=== PATIENT | female | born 1975 | race Caucasian/White ===

== ENCOUNTER 2022-11-11 06:37 | Inpatient (IN) | payer MEDICAID ==
[2022-11-11] MEDS ORDERED: Naloxone 0.4 MG/ML SDV IVPUSH PRN (06:48)
[2022-11-11] MEDS ORDERED: Lactated Ringers 1,000 ML IV SCH ×2 (07:00→15:30)
[2022-11-11 07:16] LABS: ESTIMATED GFR 50 mL/min (>60)
[2022-11-11] MEDS: HYDROmorphone/Normal Saline 6 MG/30 ML PCA Vial IV PRN ×2 (07:52→23:21)
[2022-11-11] MEDS: Ondansetron 4 MG/2 ML SDV IVPUSH PRN (08:14)
[2022-11-11] MEDS ORDERED: Acetaminophen 325 MG Tab PO SCH (09:15)
[2022-11-11] MEDS ORDERED: Piperacillin/Tazobactam 3.375 GM in Sodium Chloride 0.9% 50 ML IV SCH (09:15)
[2022-11-11] MEDS ORDERED: Folic Acid 50 MG/10 ML MDV IV SCH (09:30)
[2022-11-11] MEDS ORDERED: fentaNYL 250 MCG/5 ML SDV ONE ×2 (09:51→12:09)
[2022-11-11] MEDS ORDERED: Rocuronium 50 MG/5 ML Vial ONE ×3 (09:52→13:38)
[2022-11-11] MEDS ORDERED: Ondansetron 4 MG/2 ML SDV ONE (09:52)
[2022-11-11] MEDS ORDERED: Neostigmine Methylsulfate 1 MG/ML 5 ML Syringe ONE (09:52)
[2022-11-11] MEDS ORDERED: Propofol 200 MG/20 ML SDV ONE (09:52)
[2022-11-11] MEDS ORDERED: Dexamethasone 4 MG/ML SDV ONE (09:52)
[2022-11-11] MEDS ORDERED: Glycopyrrolate 0.2 MG/ML 5 ML MDV ONE (09:52)
[2022-11-11] MEDS ORDERED: MVI, Adult with Vitamin K 10 ML in Sodium Chloride 0.9% 1,000 ML IV ONE ×2 (10:00)
[2022-11-11] MEDS ORDERED: Indocyanine Green 25 MG SDV ONE (10:12)
[2022-11-11] MEDS ORDERED: Bupivacaine 0.5%/EPINEPHrine 1:200,000 50 ML MDV ONE (10:12)
[2022-11-11] MEDS ORDERED: Folic Acid 1 MG in Sodium Chloride 0.9% 50 ML IV SCH ×2 (10:30→12:00)
[2022-11-11] MEDS ORDERED: Lactated Ringers 1,000 ML ONE (11:02)
[2022-11-11] MEDS: Piperacillin/Tazobactam/Dext 3.375 GM in Premix Bag 1 BAG IV SCH ×3 (11:09→23:11)
[2022-11-11] MEDS ORDERED: Sodium Chloride 0.9% 500 ML ONE (11:24)
[2022-11-11] MEDS ORDERED: Phenylephrine 1% 10 MG/ML SDV ONE (11:26)
[2022-11-11] MEDS ORDERED: Sodium Chloride 0.9% 10 ML ONE (11:26)
[2022-11-11] MEDS ORDERED: Labetalol 20 MG/4 ML Syringe ONE (11:57)
[2022-11-11] MEDS ORDERED: Sodium Chloride 0.9% 250 ML ONE (14:59)
[2022-11-11] MEDS ORDERED: fentaNYL 100 MCG/2 ML SDV IVPUSH ONE (15:27)
[2022-11-11] MEDS ORDERED: hydrOXYzine HCL 100 MG/2 ML SDV IM ONE (15:29)
[2022-11-11] MEDS ORDERED: Meperidine PF 100 MG/ML Syringe IM ONE (15:40)
[2022-11-11] MEDS: Acetaminophen 500 MG Tab PO SCH ×3 (16:19→20:02)
[2022-11-11] MEDS: Pantoprazole 40 MG Vial IV SCH ×2 (16:26→23:11)
[2022-11-11] MEDS: Thiamine 100 MG in Sodium Chloride 0.9% 100 ML IV SCH (16:37)
[2022-11-11 16:44] LABS: ESTIMATED GFR 46 mL/min (>60)
[2022-11-11] MEDS ORDERED: Calcium Gluconate 10% 1 GM/10 ML SDV IVPUSH ONE ×2 (16:56→21:37)
[2022-11-11] MEDS ORDERED: Insulin Regular, Human 100 Units/ML 3 ML Vial IVPUSH ONE ×2 (16:56→21:34)
[2022-11-11] MEDS ORDERED: 50% Dextrose in Water 50 ML Syringe IVPUSH ONE ×2 (16:56→21:36)
[2022-11-11] MEDS ORDERED: Sodium Chloride 0.9% 10 ML Syringe FLUSH PRN (16:56)
[2022-11-11] MEDS: Folic Acid 1 MG in Sodium Chloride 0.9% 50 ML IV SCH (17:42)
[2022-11-11] MEDS ORDERED: Furosemide 40 MG/4 ML VIAL IVPUSH ONE (17:49)
[2022-11-11] MEDS: Nicotine 21 MG/24 Hr Patch TRDERM SCH (20:01)
[2022-11-11] MEDS ORDERED: Pantoprazole 40 MG in Sodium Chloride 0.9% 100 ML IV SCH (21:00)
[2022-11-11] MEDS: hydrALAZINE 20 MG/ML SDV IVPUSH PRN (22:15)
[2022-11-11] MEDS: Sodium Chloride 0.9% 1,000 ML IV SCH (23:55)
[2022-11-12] MEDS: Acetaminophen 500 MG Tab PO SCH ×3 (03:49→20:04)
[2022-11-12] MEDS: Piperacillin/Tazobactam/Dext 3.375 GM in Premix Bag 1 BAG IV SCH ×4 (03:49→21:17)
[2022-11-12] MEDS: hydrALAZINE 20 MG/ML SDV IVPUSH PRN (04:09)
[2022-11-12] MEDS ORDERED: Calcium Gluconate 10% 1 GM/10 ML SDV IV ONE (07:43)
[2022-11-12] MEDS ORDERED: Sodium Chloride 0.9% 10 ML Syringe FLUSH PRN (07:43)
[2022-11-12] MEDS ORDERED: Magnesium Sulfate/Water 2 GM in Premix Bag 1 BAG IV ONE (08:00)
[2022-11-12] MEDS ORDERED: Sodium Chloride 0.9% 10 ML SDV IV ONE (08:00)
[2022-11-12] MEDS ORDERED: Sodium Chloride 0.65% Nasal Spray 45 ML Bottle NAS PRN (08:05)
[2022-11-12] MEDS ORDERED: 50% Dextrose in Water 50 ML Syringe IVPUSH ONE (08:15)
[2022-11-12] MEDS ORDERED: Insulin Regular, Human 100 Units/ML 3 ML Vial IVPUSH ONE (08:15)
[2022-11-12] MEDS ORDERED: Sodium Chloride 0.9% 500 ML IV ONE (08:15)
[2022-11-12] MEDS: Nicotine 21 MG/24 Hr Patch TRDERM SCH (09:07)
[2022-11-12] MEDS: Pantoprazole 40 MG Vial IV SCH ×2 (09:07→20:05)
[2022-11-12] MEDS: oxyCODONE 5 MG Tab PO PRN ×3 (09:26→18:25)
[2022-11-12] MEDS: Thiamine 100 MG in Sodium Chloride 0.9% 100 ML IV SCH (09:29)
[2022-11-12] MEDS: Sucralfate Suspension 1 GM/10 ML Cup PO SCH ×3 (10:31→20:04)
[2022-11-12] MEDS: Sodium Chloride 0.9% 1,000 ML IV SCH (10:36)
[2022-11-12] MEDS: HYDROmorphone/Normal Saline 6 MG/30 ML PCA Vial IV PRN (12:34)
[2022-11-12] MEDS: Folic Acid 1 MG in Sodium Chloride 0.9% 50 ML IV SCH (18:25)
[2022-11-12] MEDS: Ondansetron 4 MG/2 ML SDV IVPUSH PRN (21:17)
[2022-11-13] MEDS: oxyCODONE 5 MG Tab PO PRN ×5 (00:10→23:19)
[2022-11-13] MEDS: Piperacillin/Tazobactam/Dext 3.375 GM in Premix Bag 1 BAG IV SCH ×4 (04:31→22:03)
[2022-11-13] MEDS: Acetaminophen 500 MG Tab PO SCH ×3 (04:32→20:00)
[2022-11-13 06:31] LABS: ESTIMATED GFR 39 mL/min (>60)
[2022-11-13] MEDS ORDERED: Lidocaine 1% with EPINEPHrine 1:100,000 50 ML MDV ONE (06:36)
[2022-11-13] MEDS ORDERED: Meropenem 500 MG SDV ONE (06:36)
[2022-11-13] MEDS ORDERED: Bupivacaine 0.5% 30 ML SDV ONE (06:36)
[2022-11-13] MEDS ORDERED: HYDROmorphone 0.5 MG/0.5 ML Syringe IVPUSH ONE (07:28)
[2022-11-13] MEDS ORDERED: Lactated Ringers 1,000 ML IV ONE (07:30)
[2022-11-13] MEDS ORDERED: Lactated Ringers 1,000 ML IV SCH ×2 (07:30→08:30)
[2022-11-13] MEDS: Sucralfate Suspension 1 GM/10 ML Cup PO SCH ×4 (07:37→19:59)
[2022-11-13] MEDS ORDERED: Sodium Chloride 0.9% 10 ML SDV FLUSH ONE (08:49)
[2022-11-13] MEDS ORDERED: Sodium Chloride 0.9% 100 ML IV SCH (09:00)
[2022-11-13] MEDS ORDERED: Iopamidol 755 Mg/ML 100 ML Bottle IV SCH (09:00)
[2022-11-13] MEDS: HYDROmorphone/Normal Saline 6 MG/30 ML PCA Vial IV PRN ×2 (09:09→23:10)
[2022-11-13] MEDS ORDERED: MVI, Adult with Vitamin K 10 ML in Sodium Chloride 0.9% 1,000 ML IV SCH ×4 (10:00→17:00)
[2022-11-13] MEDS: Nicotine 21 MG/24 Hr Patch TRDERM SCH (10:14)
[2022-11-13] MEDS: Pantoprazole 40 MG Vial IV SCH ×2 (10:14→20:00)
[2022-11-13] MEDS: Thiamine 100 MG in Sodium Chloride 0.9% 100 ML IV SCH (12:56)
[2022-11-13] MEDS ORDERED: Ondansetron 4 MG/2 ML SDV IVPUSH PRN (13:25)
[2022-11-13] MEDS ORDERED: diphenhydrAMINE 25 MG Cap PO PRN (13:25)
[2022-11-13] MEDS ORDERED: Naloxone 0.4 MG/ML SDV IVPUSH PRN (13:25)
[2022-11-13] MEDS: Heparin Sodium 5,000 Units/ML Vial SUBCUT SCH ×2 (14:44→22:03)
[2022-11-13] MEDS: Folic Acid 1 MG in Sodium Chloride 0.9% 50 ML IV SCH (16:35)
[2022-11-13] MEDS: Sodium Chloride 0.9% 1,000 ML IV SCH (18:15)
[2022-11-14] MEDS: oxyCODONE 5 MG Tab PO PRN ×2 (03:27→10:30)
[2022-11-14] MEDS: Acetaminophen 500 MG Tab PO SCH ×3 (03:27→19:12)
[2022-11-14] MEDS: Piperacillin/Tazobactam/Dext 3.375 GM in Premix Bag 1 BAG IV SCH ×4 (03:28→23:44)
[2022-11-14] MEDS: Sodium Chloride 0.9% 1,000 ML IV SCH ×2 (03:30→08:34)
[2022-11-14 05:55] LABS: ESTIMATED GFR 42 mL/min (>60)
[2022-11-14] MEDS ORDERED: Meropenem 500 MG SDV ONE (06:57)
[2022-11-14] MEDS ORDERED: Bupivacaine 0.5% 30 ML SDV ONE (06:57)
[2022-11-14] MEDS ORDERED: Lidocaine 1% with EPINEPHrine 1:100,000 50 ML MDV ONE (06:57)
[2022-11-14] MEDS ORDERED: fentaNYL 50 MCG/ML SDV ONE (07:03)
[2022-11-14] MEDS ORDERED: Propofol 200 MG/20 ML SDV ONE ×2 (07:03→07:24)
[2022-11-14] MEDS: Sucralfate Suspension 1 GM/10 ML Cup PO SCH ×4 (08:28→21:10)
[2022-11-14] MEDS: Nicotine 21 MG/24 Hr Patch TRDERM SCH (08:29)
[2022-11-14] MEDS: Pantoprazole 40 MG Vial IV SCH ×2 (08:35→21:10)
[2022-11-14] MEDS: Heparin Sodium 5,000 Units/ML Vial SUBCUT SCH ×2 (13:50→21:10)
[2022-11-14] MEDS: HYDROmorphone/Normal Saline 6 MG/30 ML PCA Vial IV PRN (15:50)
[2022-11-14] MEDS: MVI, Adult with Vitamin K 10 ML, Thiamine 100 MG, Folic Acid 1 MG in Sodium Chloride 0.... IV SCH ×4 (15:59)
[2022-11-14] MEDS ORDERED: Labetalol 20 MG/4 ML Syringe IVPUSH ONE (16:30)
[2022-11-14] MEDS ORDERED: Lactated Ringers 500 ML IV SCH (19:00)
[2022-11-15] MEDS: hydrALAZINE 20 MG/ML SDV IVPUSH PRN ×2 (02:14→12:42)
[2022-11-15] MEDS: HYDROmorphone/Normal Saline 6 MG/30 ML PCA Vial IV PRN ×2 (02:21→14:30)
[2022-11-15 03:35] LABS: ESTIMATED GFR 50 mL/min (>60)
[2022-11-15] MEDS: Acetaminophen 500 MG Tab PO SCH (03:59)
[2022-11-15] MEDS: Piperacillin/Tazobactam/Dext 3.375 GM in Premix Bag 1 BAG IV SCH ×4 (04:01→21:16)
[2022-11-15] MEDS: Heparin Sodium 5,000 Units/ML Vial SUBCUT SCH ×3 (04:10→21:05)
[2022-11-15] MEDS: Sodium Chloride 0.9% 1,000 ML IV SCH (04:55)
[2022-11-15] MEDS: Sucralfate Suspension 1 GM/10 ML Cup PO SCH ×4 (07:28→20:00)
[2022-11-15] MEDS ORDERED: Lactated Ringers 1,000 ML IV SCH (08:30)
[2022-11-15] MEDS: Acetaminophen 1,000 MG in Premix Bag 1 BAG IV SCH ×3 (09:16→21:05)
[2022-11-15] MEDS ORDERED: Sodium Chloride 0.9% 50 ML IV ONE (09:26)
[2022-11-15] MEDS ORDERED: Sodium Chloride 0.9% 10 ML Syringe FLUSH PRN (09:26)
[2022-11-15] MEDS ORDERED: Iopamidol 612 MG/ML 100 ML Bottle IV PRN (09:26)
[2022-11-15] MEDS ORDERED: Iopamidol 612 MG/ML 50 ML SDV PO ONE (09:26)
[2022-11-15] MEDS: Pantoprazole 40 MG Vial IV SCH ×2 (09:29→21:04)
[2022-11-15] MEDS: Nicotine 21 MG/24 Hr Patch TRDERM SCH (09:30)
[2022-11-15] MEDS ORDERED: Magnesium Sulfate/Water 2 GM in Premix Bag 1 BAG IV ONE (10:00)
[2022-11-15] MEDS: diphenhydrAMINE 50 MG/ML SDV IVPUSH PRN ×2 (10:43→16:31)
[2022-11-15] MEDS ORDERED: Bisacodyl 10 MG Supp RECTAL ONE (12:00)
[2022-11-15] MEDS ORDERED: Mineral Oil 133 ML BOTTLE RECTAL ONE (14:30)
[2022-11-15] MEDS ORDERED: HYDROmorphone/Normal Saline 6 MG/30 ML PCA Vial IV PRN (14:43)
[2022-11-15] MEDS ORDERED: Naloxone 0.4 MG/ML SDV IV PRN (15:00)
[2022-11-15] MEDS: Octreotide 100 MCG/ML SDV SUBCUT SCH ×2 (15:42→21:15)
[2022-11-15] MEDS: MVI, Adult with Vitamin K 10 ML, Thiamine 100 MG, Folic Acid 1 MG in Sodium Chloride 0.... IV SCH ×4 (16:48)
[2022-11-16] MEDS: Acetaminophen 1,000 MG in Premix Bag 1 BAG IV SCH ×2 (03:52→09:58)
[2022-11-16] MEDS: Piperacillin/Tazobactam/Dext 3.375 GM in Premix Bag 1 BAG IV SCH ×4 (04:11→21:07)
[2022-11-16] MEDS: Heparin Sodium 5,000 Units/ML Vial SUBCUT SCH ×3 (04:34→20:10)
[2022-11-16] MEDS ORDERED: HYDROmorphone 0.5 MG/0.5 ML Syringe IVPUSH ONE (04:51)
[2022-11-16] MEDS: Dextrose 5%-Lactated Ringers 1,000 ML IV SCH (05:00)
[2022-11-16] MEDS: HYDROmorphone/Normal Saline 6 MG/30 ML PCA Vial IV PRN ×2 (06:27→20:23)
[2022-11-16] MEDS ORDERED: Mineral Oil 133 ML BOTTLE RECTAL ONE (08:00)
[2022-11-16] MEDS: Sucralfate Suspension 1 GM/10 ML Cup PO SCH ×4 (08:14→20:10)
[2022-11-16] MEDS: Pantoprazole 40 MG Vial IV SCH ×2 (08:24→20:10)
[2022-11-16] MEDS: Nicotine 21 MG/24 Hr Patch TRDERM SCH (08:26)
[2022-11-16] MEDS: Octreotide 100 MCG/ML SDV SUBCUT SCH ×3 (08:35→21:07)
[2022-11-16] MEDS: hydrALAZINE 20 MG/ML SDV IVPUSH PRN ×2 (08:49→12:18)
[2022-11-16] MEDS: Diazepam 2 MG Tab PO PRN ×3 (13:13→22:08)
[2022-11-16] MEDS: MVI, Adult with Vitamin K 10 ML, Thiamine 100 MG, Folic Acid 1 MG in Sodium Chloride 0.... IV SCH ×4 (15:35)
[2022-11-16] MEDS ORDERED: Bisacodyl 10 MG Supp RECTAL ONE (16:01)
[2022-11-16] MEDS: Metoprolol Tartrate 5 MG/5 ML SDV IVPUSH SCH ×2 (16:59→22:08)
[2022-11-16] MEDS: diphenhydrAMINE 50 MG/ML SDV IVPUSH PRN (21:07)
[2022-11-17] MEDS: Diazepam 2 MG Tab PO PRN ×5 (02:31→21:53)
[2022-11-17] MEDS: Dextrose 5%-Lactated Ringers 1,000 ML IV SCH (02:35)
[2022-11-17] MEDS: diphenhydrAMINE 50 MG/ML SDV IVPUSH PRN ×2 (03:27→21:23)
[2022-11-17] MEDS: Piperacillin/Tazobactam/Dext 3.375 GM in Premix Bag 1 BAG IV SCH ×4 (03:28→21:31)
[2022-11-17] MEDS: Heparin Sodium 5,000 Units/ML Vial SUBCUT SCH ×3 (04:40→21:25)
[2022-11-17] MEDS: Metoprolol Tartrate 5 MG/5 ML SDV IVPUSH SCH ×3 (05:29→15:35)
[2022-11-17] MEDS: Sucralfate Suspension 1 GM/10 ML Cup PO SCH ×4 (07:18→21:24)
[2022-11-17] MEDS ORDERED: Potassium Chloride Riders 40 MEQ in Premix Bag 1 BAG IV ONE (08:56)
[2022-11-17] MEDS ORDERED: Cyanocobalamin (Vitamin B12) 1,000 MCG/ML SDV IM ONE (09:00)
[2022-11-17] MEDS: Nicotine 21 MG/24 Hr Patch TRDERM SCH (09:39)
[2022-11-17] MEDS: Pantoprazole 40 MG Vial IV SCH ×2 (09:40→21:25)
[2022-11-17] MEDS: Octreotide 100 MCG/ML SDV SUBCUT SCH ×3 (09:45→21:36)
[2022-11-17] MEDS: HYDROmorphone/Normal Saline 6 MG/30 ML PCA Vial IV PRN (11:54)
[2022-11-17] MEDS: Magnesium Sulfate/Water 2 GM/50 ML BAG IV SCH ×3 (12:16→23:00)
[2022-11-17] MEDS: Potassium Chloride 10 MEQ in Premix Bag 1 BAG IV SCH ×4 (12:23→16:33)
[2022-11-17] MEDS: FOLIC ACID IV SCH ×4 (15:30)
[2022-11-17] MEDS: [UNRECOGNIZED DRUG - OTHER] IV SCH ×4 (15:30)
[2022-11-17] MEDS: MVI IV SCH ×4 (15:30)
[2022-11-17] MEDS: THIAMINE IV SCH ×4 (15:30)
[2022-11-17] MEDS: VITAMIN K IV SCH ×4 (15:30)
[2022-11-17] MEDS: Lisinopril 10 MG Tab PO SCH (17:49)
[2022-11-17] MEDS: Metoprolol Tartrate 50 MG Tab PO SCH (17:50)
[2022-11-17] MEDS: Gabapentin 100 MG Cap PO SCH (21:25)
[2022-11-17] MEDS: Celecoxib 100 MG Cap PO SCH (21:25)
[2022-11-17] MEDS: Acetaminophen 325 MG Tab PO SCH (21:26)
[2022-11-18] MEDS: Diazepam 2 MG Tab PO PRN ×5 (01:59→21:44)
[2022-11-18] MEDS: Heparin Sodium 5,000 Units/ML Vial SUBCUT SCH ×3 (05:06→20:52)
[2022-11-18] MEDS: Magnesium Sulfate/Water 2 GM/50 ML BAG IV SCH ×4 (05:06→23:00)
[2022-11-18] MEDS: Acetaminophen 325 MG Tab PO SCH (05:07)
[2022-11-18] MEDS: Metoprolol Tartrate 50 MG Tab PO SCH ×2 (05:07→17:27)
[2022-11-18] MEDS: diphenhydrAMINE 50 MG/ML SDV IVPUSH PRN (05:09)
[2022-11-18] MEDS: Piperacillin/Tazobactam/Dext 3.375 GM in Premix Bag 1 BAG IV SCH ×4 (05:09→21:00)
[2022-11-18 05:24] LABS: ESTIMATED GFR 50 mL/min (>60)
[2022-11-18] MEDS: Sucralfate Suspension 1 GM/10 ML Cup PO SCH ×4 (06:01→20:51)
[2022-11-18] MEDS: Celecoxib 100 MG Cap PO SCH (09:12)
[2022-11-18] MEDS: Lisinopril 10 MG Tab PO SCH (09:13)
[2022-11-18] MEDS: Gabapentin 100 MG Cap PO SCH ×2 (09:13→20:51)
[2022-11-18] MEDS: Pantoprazole 40 MG Vial IV SCH ×2 (09:14→20:52)
[2022-11-18] MEDS: Nicotine 21 MG/24 Hr Patch TRDERM SCH (09:14)
[2022-11-18] MEDS: Bisacodyl 5 MG Tab PO SCH ×2 (09:19→20:51)
[2022-11-18] MEDS: Celecoxib 200 MG Cap PO SCH ×2 (09:19→20:51)
[2022-11-18] MEDS: Docusate Sodium 100 MG Cap PO SCH ×2 (09:19→20:51)
[2022-11-18] MEDS: Acetaminophen 500 MG Tab PO SCH ×3 (09:19→21:03)
[2022-11-18] MEDS: oxyCODONE 5 MG Tab PO PRN ×4 (09:29→21:44)
[2022-11-18] MEDS: Octreotide 100 MCG/ML SDV SUBCUT SCH ×3 (09:29→20:52)
[2022-11-18] MEDS: hydrOXYzine HCl 25 MG Tab PO PRN ×2 (17:26→21:44)
[2022-11-18] MEDS: VITAMIN K IV SCH ×4 (20:50)
[2022-11-18] MEDS: FOLIC ACID IV SCH ×4 (20:50)
[2022-11-18] MEDS: MVI IV SCH ×4 (20:50)
[2022-11-18] MEDS: [UNRECOGNIZED DRUG - OTHER] IV SCH ×4 (20:50)
[2022-11-18] MEDS: THIAMINE IV SCH ×4 (20:50)
[2022-11-19] MEDS: oxyCODONE 5 MG Tab PO PRN ×6 (02:13→22:09)
[2022-11-19] MEDS: Diazepam 2 MG Tab PO PRN ×5 (02:14→22:09)
[2022-11-19] MEDS: Piperacillin/Tazobactam/Dext 3.375 GM in Premix Bag 1 BAG IV SCH ×4 (04:00→23:46)
[2022-11-19] MEDS: Magnesium Sulfate/Water 2 GM/50 ML BAG IV SCH ×4 (05:35→23:47)
[2022-11-19] MEDS: Heparin Sodium 5,000 Units/ML Vial SUBCUT SCH ×3 (05:36→20:24)
[2022-11-19] MEDS: Metoprolol Tartrate 50 MG Tab PO SCH ×2 (05:36→17:36)
[2022-11-19] MEDS: Acetaminophen 500 MG Tab PO SCH ×5 (05:37→22:00)
[2022-11-19] MEDS: hydrOXYzine HCl 25 MG Tab PO PRN ×2 (09:18→16:20)
[2022-11-19] MEDS: Sucralfate Suspension 1 GM/10 ML Cup PO SCH ×4 (09:18→20:24)
[2022-11-19] MEDS: Celecoxib 200 MG Cap PO SCH ×2 (09:19→20:24)
[2022-11-19] MEDS: Bisacodyl 5 MG Tab PO SCH ×2 (09:19→20:24)
[2022-11-19] MEDS: Nicotine 21 MG/24 Hr Patch TRDERM SCH (09:19)
[2022-11-19] MEDS: Docusate Sodium 100 MG Cap PO SCH ×2 (09:19→20:24)
[2022-11-19] MEDS: Pantoprazole 40 MG Vial IV SCH ×2 (09:20→20:25)
[2022-11-19] MEDS: Gabapentin 100 MG Cap PO SCH ×2 (09:20→20:24)
[2022-11-19] MEDS: Lisinopril 10 MG Tab PO SCH (09:20)
[2022-11-19] MEDS: Octreotide 100 MCG/ML SDV SUBCUT SCH ×4 (09:24→21:00)
[2022-11-19] MEDS: Cyclobenzaprine 10 MG Tab PO PRN ×2 (12:45→20:24)
[2022-11-19] MEDS: FOLIC ACID IV SCH ×4 (20:25)
[2022-11-19] MEDS: [UNRECOGNIZED DRUG - OTHER] IV SCH ×4 (20:25)
[2022-11-19] MEDS: THIAMINE IV SCH ×4 (20:25)
[2022-11-19] MEDS: MVI IV SCH ×4 (20:25)
[2022-11-19] MEDS: VITAMIN K IV SCH ×4 (20:25)
[2022-11-20] MEDS: Cyclobenzaprine 10 MG Tab PO PRN (02:00)
[2022-11-20] MEDS: oxyCODONE 5 MG Tab PO PRN ×6 (02:09→23:50)
[2022-11-20] MEDS: Diazepam 2 MG Tab PO PRN ×6 (02:09→23:50)
[2022-11-20] MEDS: Piperacillin/Tazobactam/Dext 3.375 GM in Premix Bag 1 BAG IV SCH (04:00)
[2022-11-20] MEDS: Heparin Sodium 5,000 Units/ML Vial SUBCUT SCH ×3 (04:14→20:23)
[2022-11-20] MEDS: Magnesium Sulfate/Water 2 GM/50 ML BAG IV SCH (04:15)
[2022-11-20] MEDS: Metoprolol Tartrate 50 MG Tab PO SCH ×2 (04:18→17:38)
[2022-11-20] MEDS: Acetaminophen 500 MG Tab PO SCH ×4 (04:18→22:27)
[2022-11-20] MEDS: diphenhydrAMINE 50 MG/ML SDV IVPUSH PRN ×3 (04:23→19:54)
[2022-11-20 04:44] LABS: ESTIMATED GFR 42 mL/min (>60)
[2022-11-20] MEDS: Sucralfate Suspension 1 GM/10 ML Cup PO SCH ×4 (06:07→20:23)
[2022-11-20] MEDS: Docusate Sodium 100 MG Cap PO SCH ×2 (08:27→20:22)
[2022-11-20] MEDS: Gabapentin 100 MG Cap PO SCH ×2 (08:27→20:23)
[2022-11-20] MEDS: Bisacodyl 5 MG Tab PO SCH ×2 (08:27→20:22)
[2022-11-20] MEDS: Celecoxib 200 MG Cap PO SCH ×2 (08:27→20:23)
[2022-11-20] MEDS: Nicotine 21 MG/24 Hr Patch TRDERM SCH (08:27)
[2022-11-20] MEDS: Pantoprazole 40 MG Vial IV SCH (08:28)
[2022-11-20] MEDS: Lisinopril 10 MG Tab PO SCH (08:28)
[2022-11-20] MEDS: Octreotide 100 MCG/ML SDV SUBCUT SCH ×3 (08:44→20:28)
[2022-11-20] MEDS: Cyclobenzaprine 10 MG Tab PO SCH ×2 (08:45→15:24)
[2022-11-20] MEDS ORDERED: Cyclobenzaprine 10 MG Tab PO SCH (10:00)
[2022-11-20] MEDS: hydrALAZINE 20 MG/ML SDV IVPUSH PRN ×3 (11:29→20:04)
[2022-11-20] MEDS: hydrOXYzine HCl 25 MG Tab PO PRN ×2 (12:16→19:54)
[2022-11-20] MEDS: Dextrose 5%-Lactated Ringers 1,000 ML IV SCH (15:21)
[2022-11-20] MEDS: Folic Acid 1 MG Tab PO SCH (15:24)
[2022-11-20] MEDS: Thiamine 100 MG Tab PO SCH (15:25)
[2022-11-20] MEDS: Multivitamins with Iron/Calcium/Folic Acid/Minerals Tab PO SCH (17:38)
[2022-11-20] MEDS: Pantoprazole 40 MG Tab.CR PO SCH (20:23)
[2022-11-21] MEDS: Cyclobenzaprine 10 MG Tab PO SCH ×2 (01:06→08:10)
[2022-11-21] MEDS: diphenhydrAMINE 50 MG/ML SDV IVPUSH PRN (01:11)
[2022-11-21] MEDS: Acetaminophen 500 MG Tab PO SCH (04:52)
[2022-11-21] MEDS: Heparin Sodium 5,000 Units/ML Vial SUBCUT SCH (04:52)
[2022-11-21] MEDS: oxyCODONE 5 MG Tab PO PRN (04:52)
[2022-11-21] MEDS: Diazepam 2 MG Tab PO PRN (04:53)
[2022-11-21] MEDS: Metoprolol Tartrate 50 MG Tab PO SCH (04:55)
[2022-11-21 05:10] LABS: ESTIMATED GFR 50 mL/min (>60)
[2022-11-21] MEDS: Bisacodyl 5 MG Tab PO SCH (08:09)
[2022-11-21] MEDS: Docusate Sodium 100 MG Cap PO SCH (08:09)
[2022-11-21] MEDS: Gabapentin 100 MG Cap PO SCH (08:10)
[2022-11-21] MEDS: Multivitamins with Iron/Calcium/Folic Acid/Minerals Tab PO SCH (08:10)
[2022-11-21] MEDS: Sucralfate Suspension 1 GM/10 ML Cup PO SCH (08:10)
[2022-11-21] MEDS: Thiamine 100 MG Tab PO SCH (08:10)
[2022-11-21] MEDS: Celecoxib 200 MG Cap PO SCH (08:10)
[2022-11-21] MEDS: Nicotine 21 MG/24 Hr Patch TRDERM SCH (08:11)
[2022-11-21] MEDS: Lisinopril 10 MG Tab PO SCH (08:11)
[2022-11-21] MEDS: Pantoprazole 40 MG Tab.CR PO SCH (08:11)
[2022-11-21] MEDS: Folic Acid 1 MG Tab PO SCH (08:11)
[2022-11-21] MEDS: Octreotide 100 MCG/ML SDV SUBCUT SCH (08:23)
== END 2022-11-21 09:58 | disposition home or self-care (01) | DRG 327 ==
LOC: JP.ICU 06:37
PROVIDERS: ADMIT Student in an Organized Health Care Education/Training Program; ATTEND Student in an Organized Health Care Education/Training Program
PROC: 0DB60ZZ Excision of Stomach, Open Approach (ICD-10-PCS; principal; 2022-11-11)
PROC: 0WQF0ZZ Repair Abdominal Wall, Open Approach (ICD-10-PCS; 2022-11-11)
PROC: 0DB68ZX Excision of Stomach, Via Natural or Artificial Opening Endoscopic, Diagnostic (ICD-10-PCS; 2022-11-11)
PROC: 0WQF0ZZ Repair Abdominal Wall, Open Approach (ICD-10-PCS; 2022-11-14)
DX: K25.2 Acute gastric ulcer with both hemorrhage and perforation (principal); D62 Acute posthemorrhagic anemia; F17.210 Nicotine dependence, cigarettes, uncomplicated; M79.7 Fibromyalgia; G43.909 Migraine, unspecified, not intractable, without status migrainosus; E55.9 Vitamin D deficiency, unspecified; R79.89 Other specified abnormal findings of blood chemistry; K43.9 Ventral hernia without obstruction or gangrene; L93.0 Discoid lupus erythematosus; E66.9 Obesity, unspecified; I10 Essential (primary) hypertension; F15.10 Other stimulant abuse, uncomplicated; Z91.040 Latex allergy status; Z87.440 Personal history of urinary (tract) infections; Z98.84 Bariatric surgery status; Z68.35 Body mass index [BMI] 35.0-35.9, adult
CPT/HCPCS: 36415; 36430; 71275; 74177; 80048; 80053; 80305-QW; 82247; 82248; 82306; 82607; 82728; 82947; 83605; 83690; 83735; 83880; 84075; 84100; 84132; 84450; 84460; 85018; 85025; 85027; 85610; 86850; 86900; 86901; 86920; 86922; 87081; 88307; 88341; 88342; 93005; 93010; 94667; 97110-GP; 97140-GP; 97162-GP; 97530-GP; 97535-GP; 99232; A9270-GY; C9113; J0131; J0360; J0610; J1100; J1170; J1200; J1644; J1815-GY; J1940; J2175; J2185; J2354-JB-GY; J2370; J2405; J2543; J2704; J2710; J3010; J3360; J3410; J3411; J3420; J3475; J3480; J3490; J7030; J7040; J7050; J7120; J7121; P9016; P9047; Q9967

== ENCOUNTER 2022-12-13 16:30 | Inpatient (IN) | payer MEDICAID ==
[2022-12-13] MEDS ORDERED: Folic Acid 50 MG/10 ML MDV IV SCH (17:15)
[2022-12-13] MEDS ORDERED: MVI, Adult with Vitamin K 10 ML in Sodium Chloride 0.9% 1,000 ML IV ONE ×2 (17:30)
[2022-12-13] MEDS: Thiamine 100 MG in Sodium Chloride 0.9% 100 ML IV SCH (17:46)
[2022-12-13] MEDS ORDERED: fentaNYL 100 MCG/2 ML SDV IVPUSH ONE (17:54)
[2022-12-13 18:01] LABS: ESTIMATED GFR 25 mL/min (>60)
[2022-12-13] MEDS: Folic Acid 1 MG in Sodium Chloride 0.9% 50 ML IV SCH (18:29)
[2022-12-13] MEDS ORDERED: Sodium Chloride 0.9% 1,000 ML IV SCH (18:30)
[2022-12-13] MEDS: Heparin Sodium 5,000 Units/ML Vial SUBCUT SCH (19:00)
[2022-12-13] MEDS: Pantoprazole 40 MG Vial IVPUSH SCH (19:00)
[2022-12-13] MEDS: fentaNYL 50 MCG/ML SDV IVPUSH PRN ×2 (19:51→21:48)
[2022-12-14] MEDS: fentaNYL 50 MCG/ML SDV IVPUSH PRN ×4 (01:02→09:34)
[2022-12-14] MEDS: Heparin Sodium 5,000 Units/ML Vial SUBCUT SCH ×2 (06:48→18:54)
[2022-12-14] MEDS ORDERED: Acetaminophen 500 MG Tab PO SCH (08:00)
[2022-12-14] MEDS: Folic Acid 1 MG in Sodium Chloride 0.9% 50 ML IV SCH (08:29)
[2022-12-14] MEDS: Thiamine 100 MG in Sodium Chloride 0.9% 100 ML IV SCH (09:07)
[2022-12-14] MEDS ORDERED: MVI, Adult with Vitamin K 10 ML in Sodium Chloride 0.9% 1,000 ML IV ONE ×2 (10:00)
[2022-12-14] MEDS ORDERED: Ondansetron 4 MG/2 ML SDV IVPUSH ONE (10:07)
[2022-12-14 14:02] LABS: CORONAVIRUS COVID-19 NAA NEGATIVE (NEGATIVE)
[2022-12-14] MEDS ORDERED: fentaNYL 100 MCG/2 ML SDV IVPUSH PRN (14:05)
[2022-12-14] MEDS ORDERED: Nicotine Polacrilex 2 MG Gum CHEW PRN (14:33)
[2022-12-14] MEDS ORDERED: Acetaminophen 325 MG Tab PO PRN (15:22)
[2022-12-14] MEDS ORDERED: Albuterol 0.083% 2.5 MG/3 ML Neb Soln NEB PRN (15:22)
[2022-12-14] MEDS: Nicotine 21 MG/24 Hr Patch TRDERM SCH (15:42)
[2022-12-14] MEDS: Acetaminophen 500 MG Tab PO SCH ×2 (15:43→21:22)
[2022-12-14] MEDS: HYDROmorphone 2 MG Tab PO PRN (16:54)
[2022-12-14] MEDS: Ondansetron 4 MG/2 ML SDV IV PRN ×2 (16:59→21:18)
[2022-12-14] MEDS: Pantoprazole 40 MG Vial IVPUSH SCH (18:54)
[2022-12-14] MEDS: Sodium Chloride 0.9% 1,000 ML IV SCH (19:23)
[2022-12-15] MEDS: Ondansetron 4 MG/2 ML SDV IV PRN ×4 (01:51→19:19)
[2022-12-15] MEDS: HYDROmorphone 2 MG Tab PO PRN ×3 (01:57→19:18)
[2022-12-15] MEDS: Sodium Chloride 0.9% 1,000 ML IV SCH ×3 (03:36→23:04)
[2022-12-15] MEDS: Acetaminophen 500 MG Tab PO SCH ×3 (05:31→22:07)
[2022-12-15] MEDS: Heparin Sodium 5,000 Units/ML Vial SUBCUT SCH ×2 (06:43→17:39)
[2022-12-15] MEDS ORDERED: Iopamidol 612 MG/ML 500 ML Multipack Bottle IV ONE (08:10)
[2022-12-15] MEDS ORDERED: Iopamidol 612 MG/ML 50 ML SDV PO ONE (08:15)
[2022-12-15] MEDS ORDERED: Sodium Chloride 0.9% 50 ML IV SCH (08:15)
[2022-12-15] MEDS: Folic Acid 1 MG in Sodium Chloride 0.9% 50 ML IV SCH (08:47)
[2022-12-15] MEDS: Nicotine 21 MG/24 Hr Patch TRDERM SCH (08:54)
[2022-12-15] MEDS: Lisinopril 10 MG Tab PO SCH (08:54)
[2022-12-15] MEDS ORDERED: Magnesium Sulfate/Water 2 GM in Premix Bag 1 BAG IV ONE (09:00)
[2022-12-15] MEDS: Thiamine 100 MG in Sodium Chloride 0.9% 100 ML IV SCH (09:25)
[2022-12-15] MEDS: Multivitamins with Iron Tab.Chew CHEW SCH (11:26)
[2022-12-15] MEDS: Pantoprazole 40 MG Vial IVPUSH SCH (17:39)
[2022-12-16] MEDS: Ondansetron 4 MG/2 ML SDV IV PRN ×2 (04:29→10:37)
[2022-12-16] MEDS: HYDROmorphone 2 MG Tab PO PRN ×2 (04:29→10:54)
[2022-12-16] MEDS: Acetaminophen 500 MG Tab PO SCH ×2 (05:04→13:38)
[2022-12-16 05:15] LABS: ESTIMATED GFR 50 mL/min (>60)
[2022-12-16] MEDS: Heparin Sodium 5,000 Units/ML Vial SUBCUT SCH (05:35)
[2022-12-16] MEDS: Sodium Chloride 0.9% 1,000 ML IV SCH (08:42)
[2022-12-16] MEDS: Multivitamins with Iron Tab.Chew CHEW SCH (08:44)
[2022-12-16] MEDS: Nicotine 21 MG/24 Hr Patch TRDERM SCH (08:45)
[2022-12-16] MEDS: Lisinopril 10 MG Tab PO SCH (08:48)
[2022-12-16] MEDS: Thiamine 100 MG in Sodium Chloride 0.9% 100 ML IV SCH (08:51)
[2022-12-16] MEDS: Folic Acid 1 MG in Sodium Chloride 0.9% 50 ML IV SCH (09:37)
[2022-12-16] MEDS ORDERED: Magnesium Sulfate/Water 2 GM in Premix Bag 1 BAG IV ONE (10:30)
== END 2022-12-16 17:30 | disposition home or self-care (01) | DRG 920 ==
LOC: JP.ED 16:30 → JP.MS 12-14 13:56
PROVIDERS: ADMIT Hospitalist; ATTEND Student in an Organized Health Care Education/Training Program
DX: T85.598A Other mechanical complication of other gastrointestinal prosthetic devices, implants and grafts, initial encounter (principal); D62 Acute posthemorrhagic anemia; N17.9 Acute kidney failure, unspecified; E86.1 Hypovolemia; F41.9 Anxiety disorder, unspecified; F17.210 Nicotine dependence, cigarettes, uncomplicated; E86.0 Dehydration; F15.90 Other stimulant use, unspecified, uncomplicated; Z20.822 Contact with and (suspected) exposure to COVID-19; F32.A Depression, unspecified; E83.42 Hypomagnesemia; Z98.84 Bariatric surgery status; Z87.19 Personal history of other diseases of the digestive system; Z90.3 Acquired absence of stomach [part of]; Z91.040 Latex allergy status; Z87.440 Personal history of urinary (tract) infections; Z86.16 Personal history of COVID-19; Z98.890 Other specified postprocedural states; Y83.8 Other surgical procedures as the cause of abnormal reaction of the patient, or of later complication, without mention of misadventure at the time of the procedure; Y92.89 Other specified places as the place of occurrence of the external cause
CPT/HCPCS: 0241U; 36415; 74177; 74177-26; 80048; 80053; 80305-QW; 83605; 83735; 84100; 84484; 85025; 85027; 93005; 93010; 99222; 99285; A9270-GY; C9113; J1644; J2405; J3010; J3411; J3475; J3490; J7030; Q9967

== ENCOUNTER 2022-12-21 13:47 | Emergency (ER) | payer MEDICAID ==
[2022-12-21] MEDS ORDERED: Sodium Chloride 0.9% 1,000 ML IV SCH (15:15)
== END 2022-12-21 17:30 | disposition home or self-care (01) ==
LOC: JP.ED 13:47
DX: E86.0 Dehydration (principal); Z91.040 Latex allergy status; Z72.0 Tobacco use
CPT/HCPCS: 36415; 80048; 80305; 81001; 85025; 96360; 99284; J7030; 99282